=== PATIENT | female | born 1980 | race Caucasian/White ===

== ENCOUNTER 2018-06-25 10:50 | Emergency (ER) | payer SELFPAY ==
[~2018-06-25] VITALS: Ht 154.9 cm; Wt 86.6 kg
[2018-06-25 10:55] VITALS: Ht 154.9 cm; Wt 86.6 kg
[2018-06-25 12:18] VITALS: BP 90/70
== END 2018-06-25 12:18 | disposition home or self-care (01) ==
LOC: ED 10:50
DX: M54.12 Radiculopathy, cervical region (principal)

== ENCOUNTER 2019-01-18 23:58 | Emergency (ER) | payer SELFPAY ==
[~2019-01-18] VITALS: Ht 157.5 cm; Wt 86.2 kg
[2019-01-19 00:01] VITALS: Ht 157.5 cm; Wt 86.2 kg
[2019-01-19 00:42] VITALS: BP 104/35
== END 2019-01-19 00:42 | disposition home or self-care (01) ==
LOC: ED 23:58
DX: B02.9 Zoster without complications (principal)